=== PATIENT | female | born 1990 | race Hispanic/Latino ===

== ENCOUNTER → 2023-08-18 | Emergency (ER) | payer OTHER ==
[~2023-08-18] MED LIST: CIPROFLOXACIN HCL 500 MG TAB ONE; HYDROCODONE/APAP 10/325 TAB ONE; IBUPROFEN 200 MG TAB PO ONE; ONDANSETRON 4 MG (ODT) TAB ONE
--- OUTSIDE RECORDS SUMMARY | 2023-08-18 13:56 | XMS REPORT | Continuity of Care Document ---
Author Name Unknown Address [address] [facility] [place] [address] [facility] thconnect Address [address] [facility] [place] [address] Care Team Providers Care Brake Rider Name Role Phone Pcp, Patient Does Not Have A Primary Care Physic cristina Amanda Escalona MD Attending Clinician [phone] AMANDA ESCALONA Attending Clinician Unavailable Doctor Unassigned, [place] Attending Clinician U MARINA Garza Attending Clinician Unavailable Xander BRIQUETTE MAKER, Marina Attending Clinician [phone] SALLY MARTIN Attending Clinician UnavailSally Lorenzana MD Attending Clinician [phone] DOMENICA DAWKINS Attending Clinician Unavailable Phil Garcia MD Attending Clinician [phone] Domenica Dawkins MD Attending Clinician [phone] ARA FIELD Attending Clinician Unavailyanira Paniagua RN, Kailyn Attending Clinician Unavailable Lorie Bingham Attending Clinician [phone] Neha Torres Attending Clinician + [phone] NEHA WILSON Attending Clinician Unavailab CHEYENNE Velásquez Attending Clinician Unavailable Cheyenne Johnson MD Attending Clinician [phone] LEANDRA LUA Attending Clinician Unavailable VASQUEZ DOBBINS Attending Clinician Unavail able Nurse, Adc Pob Immunization Attending Clinician Unavailable Vasquez Dobbins DO Attending Clinician [phone] Leandra Lua MD Attending Clinician [phone] V[facility] Attending Clinician Unavailable Philippe Rosales Attending Clinician [phone] TERRY HDZ Attending Clinician Unavailab Terry Herrera MD Attending Clinician [phone] Lewis Watkins MD Attending Clinician [phone] MARK RIVER Attending Clinician Unavailable Mark River MD Attending Clinician [phone] Only, Adc Ed Test Attending Clinician Unavailyanira e Only, Ang Db Test Attending Clinician Unavailabl e Garrett Manriquez PA-C Attending Clinician [phone] GARRETT MANRIQUEZ Attending Clinician Unavailable Nurse, [facility] Attending Clinician Un available Kashmir Dave MD Attending Clinician [phone] KASHMIR DAVE Attending Clinician Unavailable HEATHER NIXON Attending Clinician Suad vailable Heather Howard Attending Clinician PHILIPPE LAUGHLIN Attending Clinician Unavailable 2, [facility] Attending Clinician Unavailable Reynaldo CHAVIRA, Yumiko Brock Attending Clinician [phone] SOILA MATTHEW Attending Clinician Unava Jacoby Aguirre MD Attending Clinician +[phone] Anny Corea MD Attending Clinician + [phone] ANNY COREA Attending Clinician Unavai Soila Epperson MD Attending Clinician [phone] Mirella Barriga Attending Clinician [phone] Gael SORIANO, Anjelica Rendon Attending Clinician [phone] Fermin RN, Jyothi Aldridge Attending Clinician Unavailab terry Rebolledo, Patient Does Not Have A Attending Clinician Yanique Hennessy Attending Clinician [phone] Marty Evangelista MD Attending Clinician [phone] Justice Moeller DO Attending Clinician [phone] SUSANA HAINES Attending Clinician Unavailable KENNETH GRIER Attending Clinician Unavailable MARK RIVER Admitting Clinician Unavailable SUSANA HAINES Admitting Clinician Unavailable Payers Payer Name Policy Type Policy Number Effective Date Expirati on Date Source [facility]LY [facility] [id number] 2020 00:00:00 2022 00:00:00 MEDICAID PENDING PENDING 2020 00:00:00 [facility] [id number] 2014 00:00:00 2015 00:00:00 Problems Condition Name Condition Details Condition Category Status Onset Date Resolution Date Last Treatment Date Treating Clinician Comments Source Leg pain, bilateral Leg pain, bilateral Disease Active 03-20 00:00: 00 [facility] Allergies, Adverse Reactions, Alerts Allergy Name Allergy Type Status Severity Reaction(s) Onset Date Inactive Date Treating Clinician Comments Source Penicill ins Propensi ty to adverse reaction s Active Rash 2019-08 00:00: 00 [facility] PENICILL INS Drug Class Active Rash 2019-08 00:00: 00 [facility] Social History Social Habit Start Date Stop Date Quantity Comments Source Gender identity [facility] of Social function 2022-12-07 00:00:00 2022-12-07 00:00:[address] [facility] Exposure to SARS-CoV-2 (event) 2022-03-25 00:00:00 2022-04-04 08:48:[address] [facility] Alcohol intake 2020-06-28 00:00:00 2020-06-28 00:00:00 0 /d [facility] Alcohol Comment 2018-04-23 00:00:00 2018-04-23 00:00:[address] [facility] Tobacco use and exposure 2013-04-04 00:00:00 2013-04-04 00:00:00 Smokeless tobacco non-user [facility] Sex Assigned At 1990 00:00:00 1990 00:00:[address] [facility] Smoking Status Start Date Stop Date Source Tobacco smoking consumption unknown [facility] Never smoked tobacco [facility] Medications Ordered Medication Name Filled Medication Name Start Date Stop Date Current Medication? Ordering Clinician Indication Dosage Frequency Signature (SIG) Comments Components Source cetirizine (ZYRTEC) 10 mg tablet 0 12-07 00:00: 00 Yes [id number] 10mg Take 1 tablet by mouth in the morning. [facility] fluticasone propionate 50 mcg/actuati on nasal spray 12-07 00:00: 00 Yes [id number] 2{spray } Use 2 Sprays in each nostril in the morning. [facility] meclizine 12.5 mg tablet 0 12-07 00:00: 00 Yes [id number] 12.5mg Take 1 tablet by mouth 3 (three) times daily as needed for Dizziness. [facility] cetirizine (ZYRTEC) 10 mg tablet 12-07 00:00: 00 Yes [id number] 10mg Take 1 tablet by mouth in the morning. [facility] fluticasone propionate 50 mcg/actuati on nasal spray 12-07 00:00: 00 Yes [id number] 2{spray } Use 2 Sprays in each nostril in the morning. [facility] meclizine 12.5 mg tablet 12-07 00:00: 00 Yes [id number] 12.5mg Take 1 tablet by mouth 3 (three) times daily as needed for Dizziness. [facility] cetirizine (ZYRTEC) 10 mg tablet 0 12-07 00:00: 00 Yes [id number] 10mg Take 1 tablet by mouth in the morning. [facility] fluticasone propionate 50 mcg/actuati on nasal spray 0 12-07 00:00: 00 Yes [id number] 2{spray } Use 2 Sprays in each nostril in the morning. [facility] meclizine 12.5 mg tablet 2022-0 12-07 00:00: 00 Yes [id number] 12.5mg Take 1 tablet by mouth 3 (three) times daily as needed for Dizziness. [facility] cetirizine (ZYRTEC) 10 mg tablet 12-07 00:00: 00 Yes [id number] 10mg Take 1 tablet by mouth in the morning. [facility] fluticasone propionate 50 mcg/actuati on nasal spray 12-07 00:00: 00 Yes [id number] 2{spray } Use 2 Sprays in each nostril in the morning. [facility] meclizine 12.5 mg tablet 12-07 00:00: 00 Yes [id number] 12.5mg Take 1 tablet by mouth 3 (three) times daily as needed for Dizziness. [facility] cetirizine (ZYRTEC) 10 mg tablet 12-07 00:00: 00 Yes [id number] 10mg Take 1 tablet by mouth in the morning. [facility] fluticasone propionate 50 mcg/actuati on nasal spray 12-07 00:00: 00 Yes [id number] 2{spray } Use 2 Sprays in each nostril in the morning. [facility] meclizine 12.5 mg tablet 12-07 00:00: 00 Yes [id number] 12.5mg Take 1 tablet by mouth 3 (three) times daily as needed for Dizziness. [facility] semaglutide , weight loss, 0.25 mg/0.5 mL PnIj SC injection 02-09 00:00: 00 Yes [id number] .25mg inject 0.25 mg under the skin weekly. [facility] semaglutide , weight loss, 0.25 mg/0.5 mL PnIj SC injection 02-09 00:00: 00 Yes [id number] .25mg inject 0.25 mg under the skin weekly. [facility] semaglutide , weight loss, 0.25 mg/0.5 mL PnIj SC injection 02-09 00:00: 00 12-07 00:00 :00 No [id number] .25mg inject 0.25 mg under the skin weekly. [facility] semaglutide , weight loss, 0.25 mg/0.5 mL PnIj SC injection 7-07 00:00: 00 12-07 00:00 :00 No [id number] .25mg inject 0.25 mg under the skin weekly. [facility] MAGNESIUM ORAL 2020-08 10:11: 23 06-24 00:00 :00 No 1{tbl} Take 1 tablet by mouth daily. [facility] MAGNESIUM CITRATE ORAL 2020-08 10:11: 17 06-24 00:00 :00 No Take by mouth. [facility] DIET SUPP 21-CALCIUM PHOSPHATE ORAL 2020-08 10:10: 14 06-24 00:00 :00 No 1{tbl} Take 1 tablet by mouth daily. [facility] DIPHENHYDRA MINE HCL (BENADRYL ALLERGY ORAL) 2020-08 10:10: 05 06-24 00:00 :00 No Take by mouth. [facility] DOCUSATE CALCIUM (STOOL SOFTENER ORAL) 2020-08 10:09: 58 06-24 00:00 :00 No Take by mouth. [facility] ERGOCALCIFE ROL, VITAMIN D2, (VITAMIN D ORAL) 2020-08 10:09: 52 06-24 00:00 :00 No 1{tbl} Take 1 tablet by mouth daily. [facility] Butalbital- Acetaminoph en-Caff (FIORICET) 50-300-40 mg per capsule 10-18 00:00: 00 06-24 00:00 :00 No [id number] 1{capsu le} Take 1 capsule by mouth every 6 (six) hours as needed for Pain (scale 4-6). [facility] ondansetron 4 mg disintegrat ing tablet 10-18 00:00: 00 06-24 00:00 :00 No [id number] 4mg Take 1 tablet by mouth every 4 (four) hours as needed for Nausea and Vomiting (N/V). [facility] methylPREDN ISolone (MEDROL, KELSEY,) 4 mg tablets 3-13 00:00: 00 06-24 00:00 :00 No [id number] Take by mouth SEE-INSTRU CTIONS. follow package directions [facility] naproxen 500 mg tablet 2018-08 00:00: 06-24 00:00 :00 No [id number] 500mg Take 1 tablet by mouth 2 (two) times daily with meals. [facility] methocarbam ol 500 mg tablet 2018-08 00:00: 00 06-24 00:00 :00 No [id number] 500mg Take 1 tablet by mouth 4 (four) times daily. [facility] ibuprofen 600 mg tablet 12-26 00:00: 07-27 00:00 :00 No [id number] 600mg Take 1 tablet by mouth every 6 (six) hours as needed for Pain (scale 4-6). [facility] butalbital- acetaminoph en-caff 50-325-40 mg tablet 12-26 00:00: 06-24 00:00 :00 No [id number] 1{tbl} Take 1 tablet by mouth every 6 (six) hours as needed for Pain (scale 7-10). [facility] Lidocaine-A eriberto Vera (BURN RELIEF WITH ALOE) 0.5 % Gel 03-03 00:00: 00 06-24 00:00 :00 No Apply to area(s) every 6 (six) hours as needed for Rash or Itching. [facility] traMADOL 50 mg tablet 03-29 00:00: 00 06-24 00:00 :00 No 50mg Take 1 tablet by mouth every 4 (four) hours as needed for Pain (scale 1-3). [facility] acetaminoph en-codeine (TYLENOL-CO DEINE #3) 300-30 mg tablet 03-29 00:00: 00 06-24 00:00 :00 No 1{tbl} Take 1 tablet by mouth every 4 (four) hours as needed for Pain (scale 7-10). [facility] Nitrofurant oin&Nit. Macrocryst (MACROBID) 100 mg capsule 8 00:00: 00 06-24 00:00 :00 No 100mg Take 1 capsule by mouth 2 (two) times daily. [facility] traMADOL 50 mg tablet 03-01 00:00: 00 06-24 00:00 :00 No TK 1 T PO Q 6 H [facility] Vit-Iron Fumarate-FA (RIGHT STEP VITAMINS) 27-0.8 mg per tablet 2 00:00: 06-24 00:00 :00 No 1{tbl} Take 1 tablet by mouth daily. [facility] Immunizations Ordered Immunization Name Filled Immunization Name Date Status Comments Source SARS-COV-2 COVID-19 RONNIE/J&J VACCINE 2021-09-22 00:00:[address] [facility] SARS-COV-2 COVID-19 RONNIE/J&J VACCINE 2021-09-22 00:00:[address] [facility] SARS-COV-2 COVID-19 RONNIE/J&J VACCINE 2021-09-22 00:00:[address] [facility] SARS-COV-2 COVID-19 RONNIE/J&J VACCINE 2021-09-22 00:00:[address] [facility] SARS-COV-2 COVID-19 RONNIE/J&J VACCINE 2021-09-22 00:00:[address] [facility] SARS-COV-2 COVID-19 RONNIE/J&J VACCINE 2021-09-22 00:00:[address] [facility] MMR 2013-10-29 00:00:[address] [facility] MMR 2013-10-29 00:00:[address] [facility] MMR 2013-10-29 00:00:[address] [facility] MMR 2013-10-29 00:00:[address] [facility] MMR 2013-10-29 00:00:[address] [facility] MMR 2013-10-29 00:00:[address] [facility] TDAP 2013-09-15 00:00:[address] [facility] Influenza Virus Vaccine (3+ yrs) 2013-09-15 00:00:[address] [facility] TDAP 2013-09-15 00:00:[address] [facility] Influenza Virus Vaccine (3+ yrs) 2013-09-15 00:00:[address] [facility] TDAP 2013-09-15 00:00:[address] [facility] Influenza Virus Vaccine (3+ yrs) 2013-09-15 00:00:[address] [facility] TDAP 2013-09-15 00:00:[address] [facility] Influenza Virus Vaccine (3+ yrs) 2013-09-15 00:00:[address] [facility] TDAP 2013-09-15 00:00:[address] [facility] Influenza Virus Vaccine (3+ yrs) 2013-09-15 00:00:[address] [facility] TDAP 2013-09-15 00:00:[address] [facility] Influenza Virus Vaccine (3+ yrs) 2013-09-15 00:00:[address] [facility] Rubella 2012-07-12 00:00:[address] [facility] Varicella-zoster ig 2012-07-12 00:00:[address] [facility] Rubella 2012-07-12 00:00:[address] [facility] Varicella-zoster ig 2012-07-12 00:00:[address] [facility] Rubella 2012-07-12 00:00:[address] [facility] Varicella-zoster ig 2012-07-12 00:00:[address] [facility] Rubella 2012-07-12 00:00:[address] [facility] Varicella-zoster ig 2012-07-12 00:00:[address] [facility] Rubella 2012-07-12 00:00:[address] [facility] Varicella-zoster ig 2012-07-12 00:00:[address] [facility] Rubella 2012-07-12 00:00:[address] [facility] Varicella-zoster ig 2012-07-12 00:00:[address] [facility] Td 2005-08-06 00:00:[address] [facility] Td 2005-08-06 00:00:[address] [facility] TD, NOS 2005-08-06 00:00:[address] [facility] TD, NOS 2005-08-06 00:00:[address] [facility] TD, NOS 2005-08-06 00:00:[address] [facility] TD, NOS 2005-08-06 00:00:[address] [facility] Rubella Unknown Completed [facility] TD, NOS Unknown Completed [facility] Varicella-zoster ig Unknown Completed [facility] TDAP Unknown Completed [facility] Influenza Virus Vaccine (3+ yrs) Unknown Completed [facility] MMR Unknown Completed [facility] SARS-COV-2 COVID-19 RONNIE/J&J VACCINE Unknown Completed [facility] Rubella Unknown Completed [facility] TD, NOS Unknown Completed [facility] Varicella-zoster ig Unknown Completed [facility] TDAP Unknown Completed [facility] Influenza Virus Vaccine (3+ yrs) Unknown Completed [facility] MMR Unknown Completed [facility] Vital Signs Vital Name Observation Time Observation Value Comments S ource Systolic blood pressure 2022-12-07 13:48:00 133 mm[Hg] [facility] Diastolic blood pressure 2022-12-07 13:48:00 85 mm[Hg] [facility] Heart rate 2022-12-07 13:48:00 67 /min [facility] Respiratory rate 2022-12-07 13:48:00 16 /min [facility] Body height 2022-12-07 13:48:00 160 cm [facility] Body weight 2022-12-07 13:48:00 74.254 kg [facility] BMI 2022-12-07 13:48:00 29.00 kg/m2 [facility] Oxygen saturation in Arterial blood by Pulse oximetry 2022-12-07 13:48:00 99 /min [facility] Encounters Start Date/Time End Date/Time Encounter Type Admission Type Attending Clinicians Care Facility Care Department Encounter ID Source 2021-06-04 08:09:05 Emergency [facility] [id number] [facility] 2021-06-04 08:00:55 Emergency [facility] [id number] [facility] 2021-06-04 07:19:46 Emergency [facility] [id number] [facility] 2021-06-02 14:24:49 Emergency [facility] [id number] [facility] 2021-06-02 14:12:05 Emergency [facility] [id number] [facility] 2023-06-01 16:39:01 2023-06-01 16:39:01 Outpatient [facility] [id number] Dorian Rich 2023-05-23 10:22:10 2023-05-23 10:22:10 Outpatient [facility] [id number] Dorian Rich 2023-03-28 17:30:00 2023-03-28 17:59:37 Office Visit Amanda Escalona [facility] .840.114 350.1.13.10 4.2.7.2.686 [id number] [facility] 2023-03-28 17:30:00 2023-03-28 17:59:37 Outpatient R AMANDA ESCALONA [facility] [id number] [facility] 2022-12-12 00:00:00 2022-12-12 00:00:00 Patient Secure Msg Doctor Unassigned, [place] [facility] .840.114 350.1.13.10 4.2.7.2.686 [id number] [facility] 2022-12-07 10:00:00 2022-12-07 10:00:00 Office Visit Marina [facility]aut[facility] 1.840.114 350.1.13.10 4.2.7.2.686 [id number] [facility] 2022-12-07 10:00:00 2022-12-07 09:25:52 Outpatient R MARINA GAUTAM [facility] [id number] [facility] 2022-11-27 08:00:00 2022-11-27 08:00:00 Outpatient Marcelo GAUTAM MARINA [facility] [id number] [facility] 2022-05-19 11:20:00 2022-05-19 11:20:00 Outpatient SALLY WINSLOW [facility] [id number] [facility] 2022-05-18 00:00:00 2022-05-18 00:00:00 Letter (Out) [facility] 1..840.114 350.1.13.10 4.2.7.2.686 [id number] [facility] 2022-04-04 10:00:00 2022-04-04 10:23:24 Outpatient DOMENICA NORIEGA [facility] [id number] [facility] 2022-04-04 10:00:00 2022-04-04 10:23:24 [facility] [place] [facility] 1.840.114 350.1.13.10 4.2.7.2.686 [id number] [facility] 2022-04-04 10:00:00 2022-04-04 10:00:00 Outpatient DOMENICA NORIEGA [facility] [id number] [facility] 2022-02-24 11:00:00 2022-02-24 11:00:00 Outpatient ARA DALY [facility] [id number] [facility] 2022-02-09 08:40:00 2022-02-09 09:10:34 Outpatient SALLY WINLSOW [facility] [id number] [facility] 2022-02-09 08:40:00 2022-02-09 09:10:34 Office Visit [facility] [place] [facility] 1.840.114 350.1.13.10 4.2.7.2.686 [id number] [facility] 2022-01-30 11:00:00 2022-01-30 12:38:02 Outpatient R MARINA GAUTAM [facility] [id number] [facility] 2022-01-30 11:00:00 2022-01-30 12:38:02 Office Visit Marina Gautam [facility] 1.2840.114 350.1.13.10 4.2.7.2.686 [id number] [facility] 2022-01-25 00:00:00 2022-01-25 00:00:00 [facility].840.114 350.1.13.10 4.2.7.2.686 [id number] [facility] 2022-01-24 11:20:00 2022-01-24 11:20:00 Urgent Care Lorie Stock Kimberly [facility] 1.2.840.114 350.1.13.10 4.2.7.2.686 [id number] [facility] 2022-01-24 11:20:00 2022-01-24 10:03:55 Outpatient R NEHA WILSON [facility] [id number] [facility] 2021-12-23 08:40:00 2021-12-23 08:40:00 Outpatient R SALLY MARTIN [facility] [id number] [facility] 2021-10-20 13:30:00 2021-10-20 13:30:00 Outpatient R CHEYENNE JOHNSON [facility] [id number] [facility] 2021-10-19 14:30:00 2021-10-19 14:30:00 Office Visit Cheyenne Johnson [facility] 1..114 350.1.13.10 4.2.7.2.686 [id number] [facility] 2021-10-19 14:30:00 2021-10-19 13:51:56 Outpatient R [facility]E [facility] [id number] [facility] 2021-10-19 14:30:00 2021-10-19 13:51:56 Outpatient R STEVE [facility] [id number] [facility] 2021-10-19 00:00:00 2021-10-19 00:00:00 Orders Only Doctor Unassigned, [place] [facility] 1.114 350.1.13.10 4.2.7.2.686 [id number] [facility] 2021-10-14 00:00:00 2021-10-14 00:00:00 Outpatient LEANDRA CORDOVA [facility] [id number] [facility] 2021-10-14 00:00:00 2021-10-14 00:00:00 Outpatient Marcelo LUA [facility] [id number] [facility] 2021-10-14 00:00:00 2021-10-14 00:00:00 Telephone Sally Martin [facility] 1.114 350.1.13.10 4.2.7.2.686 [id number] [facility] 2021-10-12 00:00:00 2021-10-12 00:00:00 [facility] 1.114 350.1.13.10 4.2.7.2.686 [id number] [facility] 2021-10-11 00:00:00 2021-10-11 00:00:00 Telephone Sally [facility] 1..114 350.1.13.10 4.2.7.2.686 [id number] [facility] 2021-10-06 00:00:00 2021-10-06 00:00:00 [facility] [place] [facility] 1..114 350.1.13.10 4.2.7.2.686 [id number] [facility] 2021-09-22 10:40:00 2021-09-22 10:40:00 Outpatient VASQUEZ ZURITA [facility] [id number] [facility] 2021-09-22 10:40:00 2021-09-22 10:40:00 Imm/Inj Visit Nurse, Adc Pob Immunizatio Vasquez Powell [facility] 1..114 350.1.13.10 4.2.7.2.686 [id number] [facility] 2021-09-21 00:00:00 2021-09-21 00:00:00 Telephone Leandra Lua [facility] [place] [facility] 1..114 350.1.13.10 4.2.7.2.686 [id number] [facility] 2021-09-20 13:15:00 2021-09-20 13:30:00 Application Integration Specialist Visit Vtc-Lab Domenica Dawkins [facility] [place] [facility] 1..114 350.1.13.10 4.2.7.2.686 [id number] [facility] 2021-09-20 13:15:00 2021-09-20 13:15:00 Outpatient LEANDRA CORDOVA [facility] [id number] [facility] 2021-09-19 13:00:00 2021-09-19 16:30:49 Outpatient R LEANDRA LUA [facility] [id number] [facility] 2021-09-19 13:00:00 2021-09-19 16:30:49 Telemedici ne Visit StoneyLeandra [facility]TY [place] [facility] 1.840.114 350.1.13.10 4.2.7.2.686 [id number] [facility] 2021-09-19 13:00:00 2021-09-19 16:30:49 Outpatient R JOSELEANDRA Aldridge [facility] [id number] [facility] 2021-09-19 13:00:00 2021-09-19 16:30:49 Outpatient R JOSELuis Carlos [facility] [id number] [facility] 2021-09-08 13:30:00 2021-09-08 14:40:40 Outpatient R MARINA GAUTAM [facility] [id number] [facility] 2021-09-08 13:30:00 2021-09-08 14:40:40 Office Visit Marina Gautam [facility] 1.840.114 350.1.13.10 4.2.7.2.686 [id number] [id number] [facility] 2021-09-08 13:30:00 2021-09-08 14:40:40 Outpatient R MARINA GAUTAM [facility] [id number] [facility] 2021-09-08 00:00:00 2021-09-08 00:00:00 Patient Secure Msg [facility] [place] [facility] 1.840.114 350.1.13.10 4.2.7.2.686 [id number] [facility] 2021-09-06 00:00:00 2021-09-06 00:00:00 Patient Secure Msg Jorge[facility] 1.2.840.114 350.1.13.10 4.2.7.2.686 [id number] [id number] [facility] 2021-08-19 13:00:00 2021-08-19 13:00:00 Outpatient CHEYENNE BURNETT [facility] [id number] [facility] 2021-08-19 00:00:00 2021-08-19 00:00:00 Telephone Philippe [facility]aughlin [facility] [place] [facility] 1.2.840.114 350.1.13.10 4.2.7.2.686 [id number] 044 [id number] [facility] 2021-08-19 00:00:00 2021-08-19 00:00:00 Telephone Sally Martin [facility] [place] [facility] 1.2.840.114 350.1.13.10 4.2.7.2.686 [id number] 044 [id number] [facility] 2021-08-17 14:20:00 2021-08-17 14:30:38 Outpatient SALLY WINSLOW [facility] [id number] [facility] 2021-08-17 14:20:00 2021-08-17 14:30:38 Office Visit Sally [facility] 1.2.840.114 350.1.13.10 4.2.7.2.686 [id number] [facility] 2021-08-11 13:30:00 2021-08-11 16:50:23 Outpatient TERRY FISHER [facility] [id number] [facility] 2021-08-11 14:30:00 2021-08-11 14:45:00 Application Integration Specialist Visit Vtc-[facility] Terry Hdz [facility] [place] [facility] 1.2.840.114 350.1.13.10 4.2.7.2.686 [id number] [facility] 2021-08-11 13:30:00 2021-08-11 13:45:00 Telemedici ne Visit Lewis Watkins Brandon P [facility] 1.840.114 350.1.13.10 4.2.7.2.686 [id number] 027 [id number] [facility] 2021-08-10 13:30:00 2021-08-10 13:30:00 Outpatient R STEVE [facility] [id number] [facility] 2021-08-10 13:30:00 2021-08-10 13:30:00 Outpatient R STEVE [facility] [id number] [facility] 2021-08-07 06:55:48 2021-08-07 23:59:00 Outpatient R MARK RIVER [facility] [id number] [facility] 2021-08-07 06:55:48 2021-08-07 23:59:00 Hospital Encounter Mark River, Adc Ed Test [facility] 1.840.114 350.1.13.10 4.2.7.2.686 [id number] [facility] 2021-08-07 00:00:00 2021-08-07 00:00:00 Orders Only Doctor Unassigned, [place] [facility] 1.840.114 350.1.13.10 4.2.7.2.686 [id number] [facility] 2021-08-05 09:20:00 2021-08-05 09:20:00 Outpatient R SALLY MARTIN [facility] [id number] [facility] 2021-07-31 17:30:00 2021-07-31 17:45:00 Application Integration Specialist Visit Only, Ang Db Rosario Garrett Manriquez [facility] 1..840.114 350.1.13.10 4.2.7.2.686 [id number] [facility] 2021-07-31 17:30:00 2021-07-31 15:45:24 Outpatient R GARRETT MANRIQUEZ [facility] [id number] [facility] 2021-07-27 09:00:00 2021-07-27 09:15:00 Nurse Visit Nurse, [facility] Kashmir Dave [facility] 1.840.114 350.1.13.10 4.2.7.2.686 [id number] [facility] 2021-07-27 09:00:00 2021-07-27 09:00:00 Outpatient KASHMIR BARRIOS [facility] [id number] [facility] 2021-07-27 09:00:00 2021-07-27 09:00:00 Outpatient Marcelo DAVE KASHMIR [facility] [id number] [facility] 2021-07-21 00:00:00 2021-07-21 00:00:00 Telephone Adum, Cheyenne Childs [facility] 1..840.114 350.1.13.10 4.2.7.2.686 [id number] [facility] 2021-07-12 16:09:00 2021-07-12 23:59:00 Outpatient R HEATHER MCLEAN [facility] [id number] [facility] 2021-07-12 16:09:00 2021-07-12 23:59:00 Hospital Encounter Heather Mclean [facility] 1..840.114 350.1.13.10 4.2.7.2.686 [id number] [facility] 2021-07-08 09:00:00 2021-07-08 09:00:00 Outpatient R PHILIPPE LAUGHLIN [facility] [id number] [facility] 2021-06-29 10:32:15 2021-06-29 10:47:15 Application Integration Specialist Visit Vtc-Lab Leandra Lua [facility] 1.114 350.1.13.10 4.2.7.2.686 [id number] [facility] 2021-06-29 10:30:00 2021-06-29 10:30:00 Outpatient R LEANDRA LUA [facility] [id number] [facility] 2021-06-29 00:00:00 2021-06-29 00:00:00 [facility] 1.114 350.1.13.10 4.2.7.2.686 [id number] [facility] 2021-06-29 00:00:00 2021-06-29 00:00:00 Telephone Leandra Lua [facility] 1.114 350.1.13.10 4.2.7.2.686 [id number] [facility] 2021-06-29 00:00:00 2021-06-29 00:00:00 [facility] 1..114 350.1.13.10 4.2.7.2.686 [id number] [facility] 2021-06-29 00:00:00 2021-06-29 00:00:00 Case Management Cheyenne Johnson [facility] 1.114 350.1.13.10 4.2.7.2.686 [id number] [facility] 2021-06-29 00:00:00 2021-06-29 00:00:00 Telephone Leandra Lua [facility] 1.2.114 350.1.13.10 4.2.7.2.686 [id number] [facility] 2021-06-29 00:00:00 2021-06-29 00:00:00 Case Management Adum Cheyenne Childs [facility] 1.2.114 350.1.13.10 4.2.7.2.686 [id number] [id number] [facility] 2021-06-28 00:00:00 2021-06-28 00:00:00 Patient Secure Msg Adangie [facility] 1.284.114 350.1.13.10 4.2.7.2.686 [id number] [facility] 2021-06-27 00:00:00 2021-06-27 00:00:[address] [facility] 1.284.114 350.1.13.10 4.2.7.2.686 [id number] [facility] 2021-06-24 11:45:00 2021-06-24 11:45:00 Outpatient R ADCHEYENNE LOPEZ [facility] [id number] [facility] 2021-06-24 10:55:14 2021-06-24 10:55:23 Application Integration Specialist Visit 2, Adc Lab Adangie [facility] 1.284.114 350.1.13.10 4.2.7.2.686 [id number] [facility] 2021-06-24 10:00:00 2021-06-24 10:50:27 Outpatient R STEVE CHEYENNE [facility] [id number] [facility] 2021-06-24 09:48:21 2021-06-24 10:50:27 Office Visit Cheyenne Johnson [facility] 1.114 350.1.13.10 4.2.7.2.686 [id number] [facility] 2021-06-24 08:30:00 2021-06-24 08:30:00 Outpatient R CHEYENNE JOHNSON [facility] [id number] [facility] 2021-06-23 00:00:00 2021-06-23 00:00:00 Telephone Leandra Lua [facility] 1.114 350.1.13.10 4.2.7.2.686 [id number] [id number] [facility] 2021-06-22 10:36:55 2021-06-22 10:51:55 Application Integration Specialist Visit Vtc-Lab Leandra Lua [facility] 1.114 350.1.13.10 4.2.7.2.686 [id number] [facility] 2021-06-22 10:30:00 2021-06-22 10:30:00 Outpatient R LEANDRA LUA [facility] [id number] [facility] 2021-06-17 00:00:00 2021-06-17 00:00:00 Patient Secure Msg Leandra Lua [facility] 1.114 350.1.13.10 4.2.7.2.686 [id number] 028 [id number] [facility] 2021-06-15 17:05:53 2021-06-15 17:20:53 Application Integration Specialist Visit Vtc-Lab Domenica Dawkins [facility] 1.114 350.1.13.10 4.2.7.2.686 [id number] [facility] 2021-06-15 17:05:53 2021-06-15 17:20:53 Application Integration Specialist Visit Vtc-Lab Domenica Dawkins [facility] IALTY [place] [facility] 1.2.840.114 350.1.13.10 4.2.7.2.686 [id number] [facility] 2021-06-15 17:15:00 2021-06-15 17:15:00 Outpatient R DOMENICA DAWKINS [facility] [id number] [facility] 2021-06-15 17:15:00 2021-06-15 17:15:00 Outpatient R DOMENICA DAWKINS [facility] [id number] [facility] 2021-06-13 17:24:02 2021-06-13 17:39:02 Telemedici ne [facility] [place] [facility] 1.2.840.114 350.1.13.10 4.2.7.2.686 [id number] [facility] 2021-06-13 13:00:00 2021-06-13 13:00:00 Outpatient R LEANDRA LUA [facility] [id number] [facility] 2021-06-09 00:00:00 2021-06-09 00:00:00 Telephone Yuimko Jacobs [facility] IALTY [place] [facility] 1.2.840.114 350.1.13.10 4.2.7.2.686 [id number] [facility] 2021-05-11 13:15:00 2021-05-11 13:15:00 Outpatient R LEANDRA LUA [facility] [id number] [facility] 2021-05-11 11:34:35 2021-05-11 11:49:35 Office Visit Leandra Lua [facility] 1.840.114 350.1.13.10 4.2.7.2.686 [id number] [facility] 2021-05-11 11:30:00 2021-05-11 11:30:00 Outpatient R STONEY LEANDRA [facility] [id number] [facility] 2021-05-11 00:00:00 2021-05-11 00:00:00 [facility] 1.840.114 350.1.13.10 4.2.7.2.686 [id number] 028 [id number] [facility] 2021-05-09 11:38:34 2021-05-09 11:53:34 Application Integration Specialist Visit Vtc-Lab Stoney [facility]AY [place] [facility] 1.840.114 350.1.13.10 4.2.7.2.686 [id number] [facility] 2021-05-09 11:45:00 2021-05-09 11:45:00 Outpatient R LEANDRA LUA [facility] [id number] [facility] 2021-05-02 00:00:00 2021-05-02 00:00:00 [facility] [place] [facility] 1.840.114 350.1.13.10 4.2.7.2.686 [id number] [facility] 2021-03-23 00:00:00 2021-03-23 00:00:00 [facility] [place] [facility] 1.2840.114 350.1.13.10 4.2.7.2.686 [id number] 028 [id number] [facility] 2021-03-23 00:00:00 2021-03-23 00:00:00 Telephone [facility] [place] [facility] 1.2.840.114 350.1.13.10 4.2.7.2.686 [id number] [id number] [facility] 2021-03-14 11:47:18 2021-03-14 17:11:05 Office Visit Stoney [facility] [place] [facility] 1.2.840.114 350.1.13.10 4.2.7.2.686 [id number] [id number] [facility] 2021-03-14 16:15:09 2021-03-14 16:30:09 Application Integration Specialist Visit [facility] Stoney [facility]AY [place] [facility] 1.2.840.114 350.1.13.10 4.2.7.2.686 [id number] [facility] 2021-03-14 11:45:00 2021-03-14 11:45:00 Outpatient R STONEY [facility] [id number] [facility] 2021-02-09 16:27:13 2021-02-09 16:42:13 Office Visit Stoney [facility]ALTY [place] [facility] 1.2.840.114 350.1.13.10 4.2.7.2.686 [id number] [facility] 2021-02-09 16:15:00 2021-02-09 16:15:00 Outpatient R STONEY [facility] [id number] [facility] 2021-02-08 11:44:43 2021-02-08 11:59:43 Application Integration Specialist Visit [facility] Stoney [facility] IALTY [place] [facility] 1.2.840.114 350.1.13.10 4.2.7.2.686 [id number] [facility] 2021-02-08 11:45:00 2021-02-08 11:45:00 Outpatient R LEANDAR LUA [facility] [id number] [facility] 2021-02-08 00:00:00 2021-02-08 00:00:00 Orders Only Doctor Unassigned, [place] [facility] 1.114 350.1.13.10 4.2.7.2.686 [id number] [facility] 2021-02-08 00:00:00 2021-02-08 00:00:00 Telephone Leandra Lua [facility] 1.114 350.1.13.10 4.2.7.2.686 [id number] 028 [id number] [facility] 2020-11-29 10:26:00 2020-11-29 23:59:00 Hospital Encounter Mae solomon [facility] 1..114 350.1.13.10 4.2.7.2.686 [id number] [facility] 2020-11-29 10:26:00 2020-11-29 10:26:00 [id number] 2020-10-14 09:00:00 2020-10-14 09:00:00 Outpatient SOILA TAYLOR [facility] [id number] [facility] 2020-09-07 00:00:00 2020-09-07 00:00:00 Telephone Jacoby Cornell [facility] ..114 350.1.13.10 4.2.7.2.686 [id number] [facility] 2020-08-27 11:40:37 2020-08-27 13:04:00 Office Visit Anny Corea [facility] 1.2.840.114 350.1.13.10 4.2.7.2.686 [id number] [facility] 2020-08-27 11:30:00 2020-08-27 11:30:00 Outpatient ANNY SANTIZO [facility] [id number] [facility] 2020-08-27 00:00:00 2020-08-27 00:00:00 [facility] 1.840.114 350.1.13.10 4.2.7.2.686 [id number] [facility] 2020-08-27 00:00:00 2020-08-27 00:00:00 Orders Only Doctor Unassigned, [place] [facility] 1..840.114 350.1.13.10 4.2.7.2.686 [id number] [facility] 2020-08-03 00:00:00 2020-08-03 00:00:00 Telephone Jacoby Cornell [facility] 1.840.114 350.1.13.10 4.2.7.2.686 [id number] 056 [id number] [facility] 2020-07-15 11:33:07 2020-07-15 11:48:07 Application Integration Specialist [facility] [place] [facility] 1.840.114 350.1.13.10 4.2.7.2.686 [id number] [facility] 2020-07-15 09:17:03 2020-07-15 11:34:32 [facility] [place] [facility] 1.2840.114 350.1.13.10 4.2.7.2.686 [id number] [facility] 2020-07-15 09:30:00 2020-07-15 09:30:00 Outpatient R VALERIASOILA SAINZ [facility] [id number] [facility] 2020-07-08 00:00:00 2020-07-08 00:00:00 Orders Only Doctor Unassigned, [place] [facility] 1.2.840.114 350.1.13.10 4.2.7.2.686 [id number] [facility] 2020-07-05 10:31:00 2020-07-05 11:07:00 Emergency Mirella Gaspar [facility] 1.2.840.114 350.1.13.10 4.2.7.2.686 [id number] [id number] [facility] 2020-07-03 18:46:00 2020-07-03 20:54:00 Emergency Gael Anjelica Julieta [facility] 1.2.840.114 350.1.13.10 4.2.7.2.686 [id number] 084 [id number] [facility] 2020-07-03 00:00:00 2020-07-03 00:00:00 Orders Only Doctor Unassigned, [place] [facility] 1.2.840.114 350.1.13.10 4.2.7.2.686 [id number] [facility] 2020-06-29 00:00:00 2020-06-29 00:00:00 Patient Secure Msg Doctor Unassigned, [place] [facility] 1.2.840.114 350.1.13.10 4.2.7.2.686 [id number] 019 [id number] [facility] 2020-06-29 00:00:00 2020-06-29 00:00:00 Letter (Out) Jyothi Christensen [facility] 1.2.840.114 350.1.13.10 4.2.7.2.686 [id number] [facility] 2020-06-29 00:00:00 2020-06-29 00:00:00 Telephone Pcp, Patient Does Not Have A [facility] 1.2840.114 350.1.13.10 4.2.7.2.686 [id number] [facility] 2020-06-28 14:58:00 2020-06-28 16:47:00 Emergency Lenora Yanique Kristi [facility] 1.2840.114 350.1.13.10 4.2.7.2.686 [id number] [id number] [facility] 2020-06-28 00:00:00 2020-06-28 00:00:00 Orders Only Doctor Unassigned, [place] [facility] 1.20.114 350.1.13.10 4.2.7.2.686 [id number] [id number] [facility] 2019-10-19 11:11:15 2019-10-19 12:11:00 Emergency Marty Evangelista [facility] 1.2840.114 350.1.13.10 4.2.7.2.686 [id number] [id number] [facility] 2019-10-19 00:00:00 2019-10-19 00:00:00 Orders Only Doctor Unassigned, [place] [facility] 1.2840.114 350.1.13.10 4.2.7.2.686 [id number] [facility] 2019-10-17 09:50:48 2019-10-17 10:21:00 Emergency Justice Moeller [facility] 1.2.840.114 350.1.13.10 4.2.7.2.686 [id number] 084 [id number] [facility] 2019-10-17 00:00:00 2019-10-17 00:00:00 Orders Only Doctor Unassigned, [place] [facility] 1.2.840.114 350.1.13.10 4.2.7.2.686 [id number] [id number] [facility] 2019-07-06 21:19:43 2019-07-06 23:21:00 Emergency X SUSANA HAINES [facility] ERT [id number] [facility] 2013-10-21 17:00:00 2013-10-21 18:20:12 Outpatient R KENNETH GRIER [facility] [id number] [facility]
[2023-08-18 15:15] LABS: Specific Gravity 1.027 (1.005-1.030)
[2023-08-18 15:22] LABS: Specific Gravity 1.027 (1.005-1.030); Urine Bacteria >50 /HPF (<20); Urine Bilirubin NEGATIVE (Negative); Urine Blood Negative (Negative); Urine Clarity Extremely Turbid (Clear); Urine Color Yellow (Yellow); Urine Glucose NEGATIVE (Negative); Urine Mucus 4+ /HPF (None Seen); Urine Protein 1+ (Negative); Urine RBC None Seen /HPF (None Seen); Urine Urobilinogen Normal (Normal); Urine pH 5.5 (5.0-7.0)
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
[2023-08-18 16:49] VITALS: BP 154/72; TEMP 98.2; O2SAT 100
== END ==
LOC: ER 13:52
DX: S16.1XXA Strain of muscle, fascia and tendon at neck level, initial encounter (principal); S29.011A Strain of muscle and tendon of front wall of thorax, initial encounter; N39.0 Urinary tract infection, site not specified; V49.49XA Driver injured in collision with other motor vehicles in traffic accident, initial encounter; Z98.82 Breast implant status; Z88.0 Allergy status to penicillin; Z88.8 Allergy status to other drugs, medicaments and biological substances
CPT/HCPCS: 87088; 81001; 87086; 81025; 87077; 87186; 70450; 71250; 72125; 99284; Q0162